=== PATIENT | female | born 1995 | race Caucasian/White ===

== ENCOUNTER 2016-08-29 17:13 | Emergency (ER) | payer BC, OTHER ==
[~2016-08-29] VITALS: Ht 165.1 cm; Wt 144.2 kg
[~2016-08-29 17:13] MED LIST: /LAMO10TA OR; AFRI0.056; ALBU17IN INH; ASTE137S; BENZ2TA GT; CLAR10CA3 PO; COLA50CA3 PO; COMBIVIR PO; DEPA250T2 PO; DEPO150I IM; DICL75TA PO; EFFE75CA75 OR; HYDR-3363 PO; HYDR10EL PO; HYDROXYZINE PO; IBUP200T2 PO; IBUP600T26 PO; IBUP80TA PO; INSENTRESS PO; KONS520C PO; LAMI25TA PO; LAMO100T PO; LAMO100T68 PO; Lotrisone Cream TOP; MEDR150I10 IM; MEDR1VL IM; MELOPOW PO; METAPKT PO; MONT10TA2 PO; NAPR500T OR; NATU400T PO; OCEA0.65; OMEP10CASR PO; OMEP20CA3 PO; OXYB5TA PO; OXYB5TAB80 PO; OXYBPOW PO; PRIL20CA PO; PROZ10CA7 PO; PROZ20CA11 PO; RISP1TAB OR; RISP1TAB3 PO; RISP2TAB3 PO; RISP4TAB33 PO; SING4GRA PO; SING5CHW PO; TENOFOVIR; TRAZ50TA OR; TRAZ50TA4 PO; TRI-TAB16 PO; TRIL300S PO; TRIL600T PO; TRINTAB PO; TRINTAB11 PO; TRUVTAB5 PO; VENTAER IN; VIST25CA PO; VIST50CA PO; VITA400C2 PO; ZOFR8TAB PO; [UNRECOGNIZED DRUG - CODE] TOP; [UNRECOGNIZED DRUG - OTHER] PO
[2016-08-29] MEDS ORDERED: PROT20TA11 PO (17:28)
[2016-08-29] MEDS ORDERED: RISP3TAB18 PO (17:28)
[2016-08-29] MEDS ORDERED: prozosin (17:28)
[2016-08-29] MEDS ORDERED: ULTR50TA PO (19:42)
[2016-08-29 19:48] VITALS: BP 141/91
--- NOTE | 2016-08-30 06:08 | REP ---
RIGHT FOOT, FOUR VIEWS: There is no evidence of an acute fracture, dislocation or intrinsic bone disease. IMPRESSION: No fracture or dislocation. Signed by Bill Gaming MD 08/30/2016 10:13 A
== END 2016-08-29 20:08 | disposition home or self-care (01) ==
LOC: M ED 19:30
DX: S93.601A Unspecified sprain of right foot, initial encounter (principal); Z87.891 Personal history of nicotine dependence; X50.1XXA Overexertion from prolonged static or awkward postures, initial encounter; Y92.099 Unspecified place in other non-institutional residence as the place of occurrence of the external cause; Y93.01 Activity, walking, marching and hiking; Y99.9 Unspecified external cause status

== ENCOUNTER 2016-09-09 12:21 | Emergency (ER) | payer BC, OTHER ==
[~2016-09-09] VITALS: Ht 165.1 cm; Wt 134.7 kg
[2016-09-09 12:21] VITALS: BP 147/76
[~2016-09-09 12:21] MED LIST changes: +PROT20TA11 PO; +RISP3TAB18 PO; +ULTR50TA PO; +prozosin
[2016-09-09] MEDS ORDERED: DEBR6.5S4 AD (13:51)
[2016-09-09] MEDS ORDERED: MAGICMW MT (13:51)
== END 2016-09-09 14:21 | disposition home or self-care (01) ==
LOC: M ED 12:56
DX: J02.9 Acute pharyngitis, unspecified (principal); H92.01 Otalgia, right ear

== ENCOUNTER 2016-09-14 14:55 | Inpatient (IN) | payer BC ==
[~2016-09-14] VITALS: Ht 167.6 cm; Wt 137.0 kg
[~2016-09-14 14:55] MED LIST changes: +DEBR6.5S4 AD; +MAGICMW MT
[2016-09-14 15:58] LABS: MEAN CORPUSCULAR HEMOGLOBIN 26.2 pg (27.0-33.0); MEAN CORPUSCULAR HGB CONC 32.6 g/dl (32.0-36.5); MEAN CORPUSCULAR VOLUME 80.5 fl (80.0-96.0); RED CELL DISTRIBUTION WIDTH 14.4 % (11.5-14.5)
[2016-09-14 16:19] LABS: METHADONE URINE NEGATIVE (NEGATIVE)
[2016-09-14 16:21] LABS: CONTROL LINE HCG INT CTR LINE PRESENT
[2016-09-14 16:30] LABS: ALBUMIN 3.7 GM/DL (3.2-5.2); ALBUMIN/GLOBULIN RATIO 1.06 (1.00-1.93); ALKALINE PHOSPHATASE 81 U/L (45-117); ALT/SGPT 56 U/L (12-78); ANION GAP 7 MEQ/L (8-16); AST/SGOT 37 U/L (15-37); BILIRUBIN,DIRECT 0.1 MG/DL (0.0-0.2); BILIRUBIN,TOTAL 0.3 MG/DL (0.2-1.0); BLOOD UREA NITROGEN 7 MG/DL (7-18); CALCIUM LEVEL 8.7 MG/DL (8.5-10.1); CARBON DIOXIDE LEVEL 28 MEQ/L (21-32); CHLORIDE LEVEL 106 MEQ/L (98-107); CREATININE FOR GFR 0.83 MG/DL (0.55-1.02); GLOMERULAR FILTRATION RATE > 60.0 (>60); GLUCOSE, FASTING 106 MG/DL (70-105); POTASSIUM SERUM 3.6 MEQ/L (3.5-5.1); SODIUM LEVEL 141 MEQ/L (136-145); TOTAL PROTEIN 7.2 GM/DL (6.4-8.2)
[2016-09-14] MEDS ORDERED: MOM 30ML SUSPENSION UDC PO PRN (20:45)
[2016-09-14] MEDS ORDERED: MAALOX 30 ML SUSP *UDC PO PRN (20:45)
[2016-09-14] MEDS ORDERED: PATIENT COMMENT (21:23)
[2016-09-14] MEDS ORDERED: MAGICMW MT (21:26)
[2016-09-15 01:15] VITALS: BP 140/93
[2016-09-15 06:23] VITALS: BP 140/70
[2016-09-15] MEDS: NICOTINE 14 MG/24 HR TRANSDERMAL TD SCH (09:00)
--- NOTE | 2016-09-15 11:23 | HPEPDOC ---
Medical History and Physical Date of Admission Sep 14, 2016 at 20:35 History and Physical PCP: None ATTENDING: Dr. Osman Phillips HPI: 21yoF admitted to [facility] for unspecified depressive disorder, being medically examined today. Patient states she recently moved back from [facility]. She states she has been out of her medications. She states she was previously on Singulair and albuterol as needed for her asthma. She took Protonix daily for her reflux. She has been having some itching in her nose and mucus in the back of her throat. She should use this to her allergy symptoms. No sore throat, rhinorrhea, fevers or chills. No coughing or sputum production. No wheezing. She has been homeless recently. Patient complains of a recent itchy rash on her forearms bilaterally. Denies any fevers, chills, weakness, fatigue, COLLIER, CP, SOB, cough, palpitations, abdominal pain, N/V/D or changes in bowel or bladder habits. PMHx: Asthma GERD Allergic rhinitis Anxiety Depression PTSD Borderline personality disorder Tobacco use Substance use Obesity BMI 47.7 H/O Intellectual impairment PSHX: denies SOCHX: Resides in: Patient states she is homeless, previously lived with [facility]. Marital Status: Single Kids: None Employment: Disabled Tobacco use: One pack per week ETOH: Denies Illicit Drugs: Marijuana several times per day IV Drug Use: Denies Tattoos done unprofessionally: Denies FAMHX: Mother: Alive, well Father: Unknown Siblings: 3 brothers Alive, well Children: None Unexpected deaths due to medical reasons: None. ROS: As noted in HPI, otherwise 11pt ROS of systems reviewed and remarkable only for LMP unknown. PE: GEN: 21yoF, appears stated age. Well-nourished, well developed. No acute distress. Alert and oriented x 3. Pleasant, interactive. HEENT: Normocephalic, atraumatic. Pupils are equal, round, and reactive to light. Extraocular movements are intact. No nystagmus appreciated. Sclera are nonicteric. Conjunctiva without injection. Nose midline. Nasal turbinates without bogginess. EACs both patent BL. TMs both visualized and ortiz with good cone of light, no bulging or erythema. No facial asymmetry. Moist mucous membranes. Dentition fair. Pharynx pink and moist, no cobblestoning. Neck supple , trachea midline. No lymphadenopathy or thyromegaly appreciated. CHEST: Regular rate and rhythm, +S1, +S2 LUNGS: Clear to auscultation bilaterally. No wheezes, rales, or rhonchi. Breathing appears symmetric and easy. Patient is speaking in full sentences. No accessory muscle use. ABD: Round, soft, non-tender, non-distended. +Bowel sounds throughout. No rebound or guarding. No costovertebral angle tenderness. EXT: Pulses 2+ bilaterally dorsalis pedis and radial. No lower extremity edema appreciated. SKIN: [place], dry, warm. Capillary refill <2sec. a few non-erythematous papular areas are noted on the forearms bilaterally. NEURO: Alert and oriented x 3. Cranial nerves III-XII are intact. No focal deficits appreciated. EKG: Pending. A&P: 21yoF admitted to [facility] for unspecified depressive disorder 1. Psych. Plan per Psychiatry. Obtain baseline EKG to assure the safety of psychiatric medications as they can prolong the QT interval. 2. Nicotine dependence. Patch available. 3. Rash forearms. Apply Benadryl cream as needed. 4. Follow up. No Primary Care Provider. Will attempt to establish PCP on discharge. 5. Substance use. Per psychiatry. 6. Asthma. Resume Singulair 10 mg daily. Continue albuterol HFA 2 puffs every 4 hours as needed 7. Allergic rhinitis. Add Flonase 2 sprays each nostril daily. 8. GERD. Protonix 40 mg daily. 9. Staff member Linnea OVIEDO present throughout exam. Vital Signs Vital Signs Label Value Date Time Patient Temperature 98.6 degrees F 09/15/16622 Temperature Source Core 09/15/16622 Pulse 76 09/15/16622 Respiratory Rate 18 bpm 09/15/16622 Blood Pressure Assessment 140/70 (93) 09/15/16622 Bedside Pulse Oximetry 98 % 09/15/16106 Item Value Date Time Oxygen Delivery Method Room Air 09/15/16106 Laboratory Data Labs 24H Laboratory Tests 2 09/14/16 15:42: Acetaminophen Level < 2.0L, Aspartate Amino Transf (AST/SGOT) 37, Alanine Aminotransferase (ALT/SGPT) 56, Alkaline Phosphatase 81, Total Bilirubin 0.3, Direct Bilirubin 0.1, Albumin 3.7, Albumin/Globulin Ratio 1.06, Anion Gap 7L, Calcium Level 8.7, Ethyl Alcohol Level 0.003, Glomerular Filtration Rate > 60.0 , Human Chorionic Gonadotropin, Qual NEGATIVE, Salicylates Level < 1.7L, Thyroid Stimulating Hormone (TSH) 1.330, Total Protein 7.2 09/14/16 15:51: Urine Amphetamines Screen NEGATIVE, Urine Benzodiazepines Screen NEGATIVE, Urine Opiates Screen NEGATIVE, Urine Barbiturates Screen NEGATIVE, Urine Cannabinoids Screen NEGATIVE, Urine Cocaine Metabolite Screen NEGATIVE, Urine Methadone Screen NEGATIVE, Urine Phencyclidine Screen NEGATIVE CBC/BMP Laboratory Tests 09/14/16 15:42 Red Blood Count 4.78, Mean Corpuscular Volume 80.5, Mean Corpuscular Hemoglobin 26.2 L, Mean Corpuscular Hemoglobin Concent 32.6, Red Cell Distribution Width 14.4 Home Medications Scheduled PRN Magic Mouthwash (First-Mouthwash Blm) 1 Ea Susp 1 EA MT Q6H PRN PRN THROAT SORENESS Miscellaneous Medications ([Patient Comment]) PATIENT HAS BEEN OFF HER OTHER MEDICATIONS FOR A MONTH Allergies Coded Allergies: Ibuprofen (Verified Allergy, Mild, hematuria, 08/29/16) Lay Chilel Sep 15, 2016 11:23
[2016-09-15] MEDS ORDERED: ALBUTEROL 90 MCG/ACT 8GM HFA INHALER INH PRN (11:30)
[2016-09-15] MEDS ORDERED: diphenhydrAMINE CREAM 30GM TOP PRN (11:30)
[2016-09-15] MEDS: PANTOPRAZOLE 40MG TAB (PROTONIX) PO SCH (12:10)
[2016-09-15] MEDS: FLUTICASONE PROP 0.05% NASAL SPRAY 16 GM (FLONASE) SCH (12:10)
[2016-09-15] MEDS: MONTELUKAST 10 MG TAB PO SCH (12:10)
[2016-09-15 18:00] VITALS: BP 136/68
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
[2016-09-15] MEDS: traZODone 50 MG TAB PO PRN (21:52)
[2016-09-15] MEDS: PRAZOSIN 1 MG CAP PO SCH (21:53)
[2016-09-16 06:37] VITALS: BP 135/61
[2016-09-16] MEDS: NICOTINE 14 MG/24 HR TRANSDERMAL TD SCH (09:00)
[2016-09-16] MEDS: MONTELUKAST 10 MG TAB PO SCH (09:26)
[2016-09-16] MEDS: PANTOPRAZOLE 40MG TAB (PROTONIX) PO SCH (09:26)
[2016-09-16] MEDS: FLUTICASONE PROP 0.05% NASAL SPRAY 16 GM (FLONASE) SCH (09:26)
--- NOTE | 2016-09-16 09:46 | ECGEPIP ---
Stationary ECG Study [facility] Test Date: 2016-09-15 Pat Name: JOHN LADD Department: Room: [place] [address] Gender: F Ground Crew Supervisor: SWAPNA : 1995 Requested By: Lay Chilel Order Number: [id number] Reading MD: Nicki Burton Measurements Intervals [place] Rate: 85 P: 51 OH: 148 QRS: 45 QRSD: 91 T: 63 QT: 378 QTc: 451 Interpretive Statements SINUS RHYTHM WITH SINUS ARRHYTHMIA NONSPECIFIC T-WAVE ABNORMALITY T WAVE ABNORMALITIES ARE MORE PROMINENT SINCE 01/07/14 Electronically Signed On 09-16-2016 9:46:08 EDT by Nicki Burton
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
[2016-09-16 18:00] VITALS: BP 139/81
[2016-09-16] MEDS: PRAZOSIN 1 MG CAP PO SCH (20:49)
[2016-09-16] MEDS: traZODone 50 MG TAB PO PRN (20:49)
[2016-09-16] MEDS: ACETAMINOPHEN TAB 650MG DOSE (2X325MG) PO PRN (20:51)
[2016-09-17 06:22] VITALS: BP 150/75
[2016-09-17] MEDS: NICOTINE 14 MG/24 HR TRANSDERMAL TD SCH (09:00)
[2016-09-17] MEDS: PANTOPRAZOLE 40MG TAB (PROTONIX) PO SCH (09:48)
[2016-09-17] MEDS: MONTELUKAST 10 MG TAB PO SCH (09:48)
[2016-09-17] MEDS: FLUTICASONE PROP 0.05% NASAL SPRAY 16 GM (FLONASE) SCH (09:48)
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
[2016-09-17 18:00] VITALS: BP 132/68
[2016-09-17] MEDS: ACETAMINOPHEN TAB 650MG DOSE (2X325MG) PO PRN (18:13)
[2016-09-17] MEDS: traZODone 50 MG TAB PO PRN (21:08)
[2016-09-17] MEDS: PRAZOSIN 1 MG CAP PO SCH (21:10)
[2016-09-18 06:17] VITALS: BP 143/73
[2016-09-18] MEDS: NICOTINE 14 MG/24 HR TRANSDERMAL TD SCH (08:59)
[2016-09-18] MEDS: FLUTICASONE PROP 0.05% NASAL SPRAY 16 GM (FLONASE) SCH (08:59)
[2016-09-18] MEDS: PANTOPRAZOLE 40MG TAB (PROTONIX) PO SCH (08:59)
[2016-09-18] MEDS: MONTELUKAST 10 MG TAB PO SCH (08:59)
--- NOTE | 2016-09-18 10:07 | IPNPDOC ---
Subjective Date Seen The patient was seen on 09/18/16. Subjective Chief Complaint/HPI The patient is a 21-year-old female admitted with a reason for visit of Unspec Depressive Do. Events since last encounter Requested to evaluate patient for loose stools. Patient states she began to have symptoms 2 days ago. She reports some lower left abdominal discomfort. She has noticed some urinary frequency. Some urgency. She states her urine is tinged pink. She denies back pain or flank pain. No fevers or chills. No nausea or vomiting. She is eating and drinking. She has had some loose stools and incontinence of stool. (the pt is reportedly chronically incontinent of stool and urine during prior admissions). She denies any rectal pain or hemorrhoids. The patient verbally advises no other concerns at this time. She is ambulating about the hallways. Constitutional: Denies: Chills, Fever, Night Sweats Pulmonary: Denies: Cough, Dyspnea Cardiovascular: Denies: Chest Pain, Lt Headedness, Orthopnea, Palpitations, Paroxysmal Noc. Dyspnea Neurological: Denies: Numbness, Weakness Objective Physical Examination General Exam: Positive: Alert Eye Exam: Positive: PERRLA ENT Exam: Positive: Atraumatic, Mucous membr. moist/pink, Pharynx Normal Chest Exam: Positive: Clear to auscultation, Normal air movement Heart Exam: Positive: Normal S1, Normal S2, Rate Normal, Regular Rhythm, Negative: Murmurs, Rubs Abdomen Exam: Positive: Normal bowel sounds, Soft, Negative: Hepatospenomegaly, Tenderness Skin Exam: Positive: Nl turgor and temperature Neuro Exam: Positive: Normal Gait Assessment /Plan Problems (1) Dysuria Status: Acute Problem Text: * CBC/CMP pending * UA/urine culture (2) Loose stools Status: Acute Problem Text: * CBC/CMP pending * GI panel pending (3) Asthma Status: Chronic Response to Treatment: Stable Problem Text: * Singulair * Albuterol as needed (4) Allergic rhinitis Status: Chronic Response to Treatment: Stable Problem Text: * Flonase (5) GERD (gastroesophageal reflux disease) Status: Chronic Response to Treatment: Stable Problem Text: * Protonix Plan/VTE VTE Prophylaxis Ordered?: No (ambulatory) Disposition As per psychiatry VS, I&O, 24H, Fishbone Vital Signs/I&O Vital Signs Date Time Temp Pulse Resp B/P Pulse Ox O2 Delivery O2 Flow Rate FiO2 09/18/16 06:17 99.5 91 16 143/73 09/16/16 06:37 Room Air 09/15/16 01:07 98 Lay Chilel Sep 18, 2016 10:07
[2016-09-18 10:11] LABS: BASO % 0.3 % (0.0-1.0); EOS # 0.1 K/mm3 (0.0-0.50); EOS % 2.9 % (0.0-3.0); LARGE UNSTAINED CELL # 0.1 K/mm3 (0.0-0.4); LARGE UNSTAINED CELL % 2.4 % (0.0-4.0); LYMPH # 1.8 K/mm3 (1.5-6.5); LYMPH % 40.4 % (24.0-44.0); MEAN CORPUSCULAR HEMOGLOBIN 27.1 pg (27.0-33.0); MEAN CORPUSCULAR HGB CONC 33.6 g/dl (32.0-36.5); MEAN CORPUSCULAR VOLUME 80.6 fl (80.0-96.0); MONO # 0.2 K/mm3 (0.0-0.8); MONO % 5.4 % (0.0-5.0); NEUTROPHILS # 2.1 K/mm3 (1.8-7.7); NEUTROPHILS % 48.6 % (36.0-66.0); PLATELET COUNT, AUTOMATED 297 k/mm3 (150-450); RED CELL DISTRIBUTION WIDTH 14.7 % (11.5-14.5); WHITE BLOOD COUNT 4.4 K/mm3 (4.0-10.0)
[2016-09-18 10:26] LABS: ALBUMIN 3.2 GM/DL (3.2-5.2); ALBUMIN/GLOBULIN RATIO 0.94 (1.00-1.93); ALKALINE PHOSPHATASE 73 U/L (45-117); ALT/SGPT 42 U/L (12-78); ANION GAP 9 MEQ/L (8-16); AST/SGOT 22 U/L (15-37); BILIRUBIN,TOTAL 0.2 MG/DL (0.2-1.0); BLOOD UREA NITROGEN 10 MG/DL (7-18); CALCIUM LEVEL 8.4 MG/DL (8.5-10.1); CARBON DIOXIDE LEVEL 27 MEQ/L (21-32); CHLORIDE LEVEL 107 MEQ/L (98-107); CREATININE FOR GFR 0.75 MG/DL (0.55-1.02); GLOMERULAR FILTRATION RATE > 60.0 (>60); GLUCOSE, FASTING 108 MG/DL (70-105); POTASSIUM SERUM 4.6 MEQ/L (3.5-5.1); SODIUM LEVEL 143 MEQ/L (136-145); TOTAL PROTEIN 6.6 GM/DL (6.4-8.2)
[2016-09-18] MEDS ORDERED: traZODone 100 MG TAB PO PRN (17:00)
[2016-09-18 18:00] VITALS: BP 154/92
--- NOTE | 2016-09-18 18:01 | IPNPDOC ---
[facility] Progress Note Progress Note DATE OF SERVICE: 09/18/16 INTERVAL HISTORY: The patient is met with today. She described that she was feeling much better she was found playing a game of battleship with other peers and appeared to be enjoying it fairly well. She described that she was feeling better with the Minipress and trazodone combination for sleep. She described that she was still having some trouble sleeping and was interested increasing her trazodone to a small amount. She described that she was interested in the [facility] referral, in process. Otherwise she states she is having no side effects from the medications and that her original suicidality and depression that she presented with had resolved in the milieu. Nursing staff had no concerns with the patient and she's been amenable upon approach per report. VITAL SIGNS: See below. NEW TEST RESULTS: See below CURRENT MEDICATIONS: See below. MENTAL STATUS EXAMINATION: General: Cooperative but with poor hygiene, improving Speech: Spontaneous fluid Thought processes: Linear logical Thought content: Perseveration on battleship Abstract reasoning, and computation: Intact Description of associations: Intact Description of abnormal or psychotic thoughts:Denies any suicidal or homicidal ideation. Denies any auditory or visual hallucinations. Does not appear to be responding to internal stimuli. Does not appear to be endorsing any bizarre or paranoid ideation. Judgment: Limited Insight: Limited Orientation: Alert and oriented 3 Recent and remote memory: Intact Attention span and concentration: Intact Fund of knowledge: Poor Mood: "Okay" Affect: Euthymic with a full range DIAGNOSES: 1. PTSD, acute phase. 2. borderline personality disorder by history. 3. Intellectual disability by history. ASSESSMENT: 21-year-old woman with a history of intellectual impairment and borderline personality disorder presents in acute phase PTSD. she has benefited greatly from the milieu as well as conservative treatment with Minipress and trazodone. Her sleep appears to be the knees of improving her mood and social ability. MANAGEMENT PLAN: Medications: Increase trazodone to 100 mg when necessary at night for sleep and continue Minipress 2 mg at night with potential to use longer acting agent such this does not provide adequate coverage Psychotherapy: Continue standard psychotherapy and encourage group attendance Social: TLS referral in progress Misc: None Disposition: The patient will need a longer inpatient stay to just further PTSD symptoms and adjust medications. She is currently unstable for discharge. TIME SPENT: 15 minutes. Vital Signs Vital Signs Date Time Temp Pulse Resp B/P Pulse Ox O2 Delivery O2 Flow Rate FiO2 09/18/16 06:17 99.5 91 16 143/73 09/16/16 06:37 Room Air 09/15/16 01:07 98 Laboratory Data 24H Labs Laboratory Tests 2 09/18/16 08:58: Blood Urea Nitrogen 10, Creatinine 0.75, Sodium Level 143, Potassium Level 4.6, Chloride Level 107, Carbon Dioxide Level 27, Calcium Level 8.4L, Aspartate Amino Transf (AST/SGOT) 22, Alanine Aminotransferase (ALT/SGPT) 42, Alkaline Phosphatase 73, Total Bilirubin 0.2, Total Protein 6.6, Albumin 3.2, Albumin/ Globulin Ratio 0.94L, Anion Gap 9, White Blood Count 4.4, Red Blood Count 4.50, Hemoglobin 12.2, Hematocrit 36.3, Mean Corpuscular Volume 80.6, Mean Corpuscular Hemoglobin 27.1, Mean Corpuscular Hemoglobin Concent 33.6, Red Cell Distribution Width 14.7H, Platelet Count 297, Neutrophils (%) (Auto) 48.6, Lymphocytes (%) (Auto) 40.4, Monocytes (%) (Auto) 5.4H, Eosinophils (%) (Auto) 2.9, Basophils (%) (Auto) 0.3, Neutrophils # (Auto) 2.1, Lymphocytes # (Auto) 1.8, Monocytes # (Auto) 0.2, Eosinophils # (Auto) 0.1, Basophils # (Auto) 0.0, Glomerular Filtration Rate > 60.0, Large Unclassified Cells # 0.1, Large Unclassified Cells % 2.4 09/18/16 13:30: Urine Amorphous Sediment , Urine Appearance HAZY, Urine Color YELLOW, Urine pH 7.0, Urine Specific [place] 1.009, Urine Protein NEGATIVE, Urine Glucose (UA) NEGATIVE, Urine Ketones NEGATIVE, Urine Urobilinogen 0.2, Urine Bilirubin NEGATIVE, Urine Leukocyte Esterase TRACEH, Urine Bacteria (Auto) 1+H, Urine Blood NEGATIVE, Urine Calcium Carbonate Cryst(Auto) , Urine Calcium Oxalate Cryst (Auto) , Urine Calcium Phosphate [place] (Auto) , Urine Cellular Casts , Urine Cystine Crystals , Urine Granular Casts (Auto) , Urine Hyaline Casts (Auto ) 0, Urine Leucine Crystals , Urine Mucus (Auto) , Urine Nitrite NEGATIVE, Urine Oval Fat Bodies (Auto) , Urine RBC (Auto) 2, Urine Renal Epithelial Cells , Urine Sperm (Auto) , Urine Squamous Epithelial Cells 3, Urine Transitional Epithelial Cells , Urine Trichomonas (Auto) , Urine Triple Phosphate Cryst (Auto ) , Urine Tyrosine Crystals , Urine Uric Acid Crystals (Auto) , Urine WBC (Auto ) 3, Urine Waxy Casts (Auto) , Urine Yeast-Like Cells (Auto) CBC/BMP Laboratory Tests 09/18/16 08:58 Calcium Level 8.4 L, Aspartate Amino Transf (AST/SGOT) 22, Alanine Aminotransferase (ALT/SGPT) 42, Alkaline Phosphatase 73, Total Bilirubin 0.2, Total Protein 6.6, Albumin 3.2, Red Blood Count 4.50, Mean Corpuscular Volume 80.6, Mean Corpuscular Hemoglobin 27.1, Mean Corpuscular Hemoglobin Concent 33.6 , Red Cell Distribution Width 14.7 H, Neutrophils (%) (Auto) 48.6, Lymphocytes ( %) (Auto) 40.4, Monocytes (%) (Auto) 5.4 H, Eosinophils (%) (Auto) 2.9, Basophils (%) (Auto) 0.3, Neutrophils # (Auto) 2.1, Lymphocytes # (Auto) 1.8, Monocytes # (Auto) 0.2, Eosinophils # (Auto) 0.1, Basophils # (Auto) 0.0 Current Medications Current Medications Acetaminophen (Tylenol Tab) 650 mg Q6HP PRN PO HEADACHE or DISCOMFORT Last administered on 09/17/16t 18:13; Start 09/14/16 at 20:45; Stop 10/14/16 at 20:44 Al Hydrox/Mg Hydrox/Simethicone (Mylanta) 30 ml Q4HP PRN PO HEARTBURN/ INDIGESTION; Start 09/14/16 at 20:45; Stop 10/14/16 at 20:44 Albuterol Sulfate (Proventil, Ventolin Hfa) 2 puff Q4HP PRN INH SHORTNESS OF BREATH; Start 09/15/16 at 11:30; Stop 10/15/16 at 11:29 Diphenhydramine HCl (Benadryl Cream) 1 dose BIDP PRN TOP ITCHING; Start at 11:30; Stop 10/15/16 at 11:29 Fluticasone Propionate (Flonase 0.05% Nasal [place]) 2 spray DAILY NA Last administered on 09/18/16 08:59; Start 09/15/16 at 09:00; Stop 10/15/16 at 08:59 Home Med (Med Rec Complete!) ASDIRECTED XX ; Start 09/14/16 at 21:30; Stop at 21:30; Status DC Magnesium Hydroxide (Milk Of Magnesia) 30 ml DAILYPRN PRN PO CONSTIPATION; Start 09/14/16 at 20:45; Stop 10/14/16 at 20:44 Montelukast Sodium (Singulair) 10 mg DAILY PO Last administered on 09/18/16 08 :59; Start 09/15/16 at 09:00; Stop 10/15/16 at 08:59 Nicotine (Nicoderm Cq 14mg) 1 patch DAILY TD ; Start 09/15/16 at 09:00; Stop at 08:59 Pantoprazole Sodium (Protonix) 40 mg DAILY PO Last administered on 09/18/16 08 :59; Start 09/15/16 at 09:00; Stop 10/15/16 at 08:59 Prazosin HCl (Minipress) 2 mg QHS PO Last administered on 09/17/16 21:10; Start 09/15/16 at 21:00; Stop 10/15/16 at 20:59 Trazodone HCl (Desyrel) 50 mg QHSP PRN PO INSOMNIA Last administered on 21:08; Start 09/14/16 at 20:45; Stop 09/18/16 at 17:02; Status DC Trazodone HCl (Desyrel) 100 mg QHSP PRN PO INSOMNIA; Start 09/18/16 at 17:00; Stop 10/18/16 at 16:59 Allergies Coded Allergies: Ibuprofen (Verified Allergy, Mild, hematuria, 08/29/16) GME ATTESTATION My preceptor for this patient encounter was physically present in the building during the encounter and was fully available. As needed, all aspects of the patient interview, examination, medical decision making process, and medical care plan development were reviewed and approved by the preceptor. Preceptor is aware and concurs with the plan as stated in the body of this note and will attest to such by his/her cosignature. SINAI KHAN DO Sep 18, 2016 18:00
[2016-09-18] MEDS: PRAZOSIN 1 MG CAP PO SCH (21:13)
[2016-09-18] MEDS: ACETAMINOPHEN TAB 650MG DOSE (2X325MG) PO PRN (21:14)
[2016-09-19 06:44] VITALS: BP 130/71
[2016-09-19] MEDS: FLUTICASONE PROP 0.05% NASAL SPRAY 16 GM (FLONASE) SCH (09:00)
[2016-09-19] MEDS: PANTOPRAZOLE 40MG TAB (PROTONIX) PO SCH (09:00)
[2016-09-19] MEDS: MONTELUKAST 10 MG TAB PO SCH (09:00)
[2016-09-19] MEDS: NICOTINE 14 MG/24 HR TRANSDERMAL TD SCH (09:00)
--- NOTE | 2016-09-19 16:49 | IPNPDOC ---
[facility] Progress Note Progress Note DATE OF SERVICE: 09/19/16 INTERVAL HISTORY: Medication Side effects: The patient denies any side effects or men depressed. She describes that the increased trazodone had made her excessively sleepy. Behavior: She is been engaged in social in the milieu. Friendly and amenable upon approach. Group Attendance: Has been attending groups fairly frequently. Psychiatric Symptom change: The patient states that most of her reported psychotic symptoms have resolved. She states that her insomnia has improved was not completely completely treated. She denies any current experience of depression or anxiety and feels that the milieu is highly stabilizing for her. VITAL SIGNS: See below. NEW TEST RESULTS: See below CURRENT MEDICATIONS: See below. MENTAL STATUS EXAMINATION: General: Well dressed with poor hygiene Speech: Spontaneous and fluid Thought processes: Linear and logical Thought content: Excitement about possible discharge Abstract reasoning, and computation: Intact Description of associations: Intact Description of abnormal or psychotic thoughts:Denies any suicidal or homicidal ideation. Denies any auditory or visual hallucinations. Does not appear to be responding to internal stimuli. Does not appear to be endorsing any bizarre or paranoid ideation. Judgment: Limited Insight: Limited Orientation: Alert and orientated 3 Recent and remote memory: Intact Attention span and concentration: Intact Fund of knowledge: Poor Mood: "Great" Affect: Euthymic with a full range DIAGNOSES: 1. PTSD, acute. 2. History of borderline personality disorder. 3. History of intellectual disability. ASSESSMENT: 21-year-old woman with a history of PTSD symptoms as well as reported history of borderline personality disorder and intellectual disability. She presented in acute state of reactivity PTSD after her social situation become tumultuous. MANAGEMENT PLAN: Medications: Continue Minipress 2 mg and lower trazodone to 75 mg when necessary night Psychotherapy: Encourage group attendance Social: billet worker getting contact with mother to determine outpatient options as [facility] will not be able to offer the patient housing in any reasonable amount of time Misc: None Disposition: The patient will require longer inpatient stay to address her medication adjustments and to secure a safe and effective discharge. TIME SPENT: 15 minutes. Vital Signs Vital Signs Date Time Temp Pulse Resp B/P Pulse Ox O2 Delivery O2 Flow Rate FiO2 09/19/16 06:44 97.7 82 20 130/71 09/16/16 06:37 Room Air 09/15/16 01:07 98 Current Medications Current Medications Acetaminophen (Tylenol Tab) 650 mg Q6HP PRN PO HEADACHE or DISCOMFORT Last administered on 09/18/16 21:14; Start 09/14/16 at 20:45; Stop 10/14/16 at 20:44 Al Hydrox/Mg Hydrox/Simethicone (Mylanta) 30 ml Q4HP PRN PO HEARTBURN/ INDIGESTION; Start 09/14/16 at 20:45; Stop 10/14/16 at 20:44 Albuterol Sulfate (Proventil, Ventolin Hfa) 2 puff Q4HP PRN INH SHORTNESS OF BREATH; Start 09/15/16 at 11:30; Stop 10/15/16 at 11:29 Diphenhydramine HCl (Benadryl Cream) 1 dose BIDP PRN TOP ITCHING; Start at 11:30; Stop 10/15/16 at 11:29 Fluticasone Propionate (Flonase 0.05% Nasal [place]) 2 spray DAILY NA Last administered on 09/18/16 08:59; Start 09/15/16 at 09:00; Stop 10/15/16 at 08:59 Home Med (Med Rec Complete!) ASDIRECTED XX ; Start 09/14/16 at 21:30; Stop at 21:30; Status DC Magnesium Hydroxide (Milk Of Magnesia) 30 ml DAILYPRN PRN PO CONSTIPATION; Start 09/14/16 at 20:45; Stop 10/14/16 at 20:44 Montelukast Sodium (Singulair) 10 mg DAILY PO Last administered on 09/18/16 08 :59; Start 09/15/16 at 09:00; Stop 10/15/16 at 08:59 Nicotine (Nicoderm Cq 14mg) 1 patch DAILY TD ; Start 09/15/16 at 09:00; Stop at 08:59 Pantoprazole Sodium (Protonix) 40 mg DAILY PO Last administered on 09/18/16 08 :59; Start 09/15/16 at 09:00; Stop 10/15/16 at 08:59 Prazosin HCl (Minipress) 2 mg QHS PO Last administered on 09/18/16 21:13; Start 09/15/16 at 21:00; Stop 10/15/16 at 20:59 Trazodone HCl (Desyrel) 50 mg QHSP PRN PO INSOMNIA Last administered on 21:08; Start 09/14/16 at 20:45; Stop 09/18/16 at 17:02; Status DC Trazodone HCl (Desyrel) 100 mg QHSP PRN PO INSOMNIA Last administered on 21:12; Start 09/18/16 at 17:00; Stop 10/18/16 at 16:59 Allergies Coded Allergies: Ibuprofen (Verified Allergy, Mild, hematuria, 08/29/16) GME ATTESTATION My preceptor for this patient encounter was physically present in the building during the encounter and was fully available. As needed, all aspects of the patient interview, examination, medical decision making process, and medical care plan development were reviewed and approved by the preceptor. Preceptor is aware and concurs with the plan as stated in the body of this note and will attest to such by his/her cosignature. SINAI KHAN DO Sep 19, 2016 16:49
[2016-09-19] MEDS ORDERED: traZODone 25MG PER 1/2 TABLET PO PRN (17:30)
[2016-09-19 18:21] VITALS: BP 154/85
[2016-09-19] MEDS ORDERED: LORazepam 1 MG TAB PO STA (19:03)
[2016-09-19] MEDS: ACETAMINOPHEN TAB 650MG DOSE (2X325MG) PO PRN (21:38)
[2016-09-19] MEDS: traZODone 50 MG TAB PO PRN (21:39)
[2016-09-19] MEDS: PRAZOSIN 1 MG CAP PO SCH (21:41)
[2016-09-20 06:20] VITALS: BP 144/90
[2016-09-20] MEDS: NICOTINE 14 MG/24 HR TRANSDERMAL TD SCH (09:00)
[2016-09-20] MEDS: MONTELUKAST 10 MG TAB PO SCH (09:05)
[2016-09-20] MEDS: FLUTICASONE PROP 0.05% NASAL SPRAY 16 GM (FLONASE) SCH (09:05)
[2016-09-20] MEDS: PANTOPRAZOLE 40MG TAB (PROTONIX) PO SCH (09:05)
[2016-09-20 18:00] VITALS: BP 137/67
[2016-09-20] MEDS: hydrOXYzine 50 MG TAB PO PRN (19:45)
[2016-09-20] MEDS: traZODone 50 MG TAB PO PRN (20:16)
[2016-09-20] MEDS: PRAZOSIN 1 MG CAP PO SCH (20:16)
[2016-09-21 06:13] VITALS: BP 137/78
[2016-09-21] MEDS: NICOTINE 14 MG/24 HR TRANSDERMAL TD SCH (09:00)
[2016-09-21] MEDS: PANTOPRAZOLE 40MG TAB (PROTONIX) PO SCH (09:18)
[2016-09-21] MEDS: MONTELUKAST 10 MG TAB PO SCH (09:18)
[2016-09-21] MEDS: FLUTICASONE PROP 0.05% NASAL SPRAY 16 GM (FLONASE) SCH (09:18)
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
--- NOTE | 2016-09-21 16:21 | IPNPDOC ---
[facility] Progress Note Progress Note DATE OF SERVICE: 09/21/16 INTERVAL HISTORY: Medication Side Effects: The patient reports no side effects from her Minipress or trazodone Psychiatric Symptoms: The patient reports that her anxiety yesterday was quite high after expressing a peer who was fairly paranoid and somewhat verbally aggressive. She denies currently experiencing any anxiety or depressive symptoms. Events/Behavior: Yesterday she noted the scratched her arm as she was fairly stressed out by her peer who was fairly paranoid and verbally aggressive. Since then she is been much more calm and did not require any serious intervention. Psychotherapy/Group attendance: The patient has been regularly attending psychotherapy groups on the [place] and making progress. MENTAL STATUS EXAMINATION: General: Well dressed with good hygiene Speech: Spontaneous and fluid Thought processes: Linear and logical Thought content: Introspective about her anxiety Abstract reasoning, and computation: Intact Description of associations: Intact Description of abnormal or psychotic thoughts:Denies any suicidal or homicidal ideation. Denies any auditory or visual hallucinations. Does not appear to be responding to internal stimuli. Does not appear to be endorsing any bizarre or paranoid ideation. Judgment: Limited but improving Insight: Limited but improving Orientation: Alert and orientated 3 Recent and remote memory: Intact Attention span and concentration: Intact Fund of knowledge: Adequate Mood: "Okay" Affect: Euthymic with a full range DIAGNOSES Per DSMV: 1. PTSD, acute phase. 2. History of borderline personality disorder. 3. History of intellectual disability. ASSESSMENT: Clinical Status/Prognosis: Improving and currently stable Discharge planning: Completed with pending discharge tomorrow MANAGEMENT PLAN: Medications: Continue Minipress 2 mg at night and when necessary trazodone 75 mg at night Psychotherapy: The patient will benefit from further inpatient psychotherapy in the form of milieu, group and individual with standard protocols. Social: DSS housing completed Misc: none Disposition: The patient is still suffering from disposition needs, and will need further inpatient time to treat. This case was discussed with the Attending and SW. TIME SPENT: 15 minutes. Vital Signs Vital Signs Date Time Temp Pulse Resp B/P Pulse Ox O2 Delivery O2 Flow Rate FiO2 09/21/16 06:13 98.4 85 16 137/78 09/16/16 06:37 Room Air 09/15/16 01:07 98 Current Medications Current Medications Acetaminophen (Tylenol Tab) 650 mg Q6HP PRN PO HEADACHE or DISCOMFORT Last administered on 09/19/16 21:38; Start 09/14/16 at 20:45; Stop 10/14/16 at 20:44 Al Hydrox/Mg Hydrox/Simethicone (Mylanta) 30 ml Q4HP PRN PO HEARTBURN/ INDIGESTION; Start 09/14/16 at 20:45; Stop 10/14/16 at 20:44 Albuterol Sulfate (Proventil, Ventolin Hfa) 2 puff Q4HP PRN INH SHORTNESS OF BREATH; Start 09/15/16 at 11:30; Stop 10/15/16 at 11:29 Diphenhydramine HCl (Benadryl Cream) 1 dose BIDP PRN TOP ITCHING; Start at 11:30; Stop 10/15/16 at 11:29 Fluticasone Propionate (Flonase 0.05% Nasal [place]) 2 spray DAILY NA Last administered on 09/21/16 09:18; Start 09/15/16 at 09:00; Stop 10/15/16 at 08:59 Home Med (Med Rec Complete!) ASDIRECTED XX ; Start 09/14/16 at 21:30; Stop at 21:30; Status DC Hydroxyzine HCl (Atarax) 50 mg Q8HP PRN PO ANXIETY/AGITATION Last administered on 09/20/16 19:45; Start 09/20/16 at 18:15 Magnesium Hydroxide (Milk Of Magnesia) 30 ml DAILYPRN PRN PO CONSTIPATION; Start 09/14/16 at 20:45; Stop 10/14/16 at 20:44 Montelukast Sodium (Singulair) 10 mg DAILY PO Last administered on 09/21/16 09 :18; Start 09/15/16 at 09:00; Stop 10/15/16 at 08:59 Nicotine (Nicoderm Cq 14mg) 1 patch DAILY TD ; Start 09/15/16 at 09:00; Stop at 08:59 Pantoprazole Sodium (Protonix) 40 mg DAILY PO Last administered on 09/21/16 09 :18; Start 09/15/16 at 09:00; Stop 10/15/16 at 08:59 Prazosin HCl (Minipress) 2 mg QHS PO Last administered on 09/20/16 20:16; Start 09/15/16 at 21:00; Stop 10/15/16 at 20:59 Trazodone HCl (Desyrel) 50 mg QHSP PRN PO INSOMNIA Last administered on 21:08; Start 09/14/16 at 20:45; Stop 09/18/16 at 17:02; Status DC Trazodone HCl (Desyrel) 75 mg QHSP PRN PO INSOMNIA; Start 09/19/16 at 17:30; Stop 09/19/16 at 17:30; Status DC Trazodone HCl (Desyrel) 75 mg QHSP PRN PO INSOMNIA Last administered on 20:16; Start 09/19/16 at 17:30; Stop 10/19/16 at 17:29 Trazodone HCl (Desyrel) 100 mg QHSP PRN PO INSOMNIA Last administered on 21:12; Start 09/18/16 at 17:00; Stop 09/19/16 at 17:20; Status DC Allergies Coded Allergies: Ibuprofen (Verified Allergy, Mild, hematuria, 08/29/16) GME ATTESTATION My preceptor for this patient encounter was physically present in the building during the encounter and was fully available. As needed, all aspects of the patient interview, examination, medical decision making process, and medical care plan development were reviewed and approved by the preceptor. Preceptor is aware and concurs with the plan as stated in the body of this note and will attest to such by his/her cosignature. SINAI KHAN DO Sep 21, 2016 16:21
[2016-09-21 18:00] VITALS: BP 124/58
[2016-09-21 22:11] VITALS: BP 134/7
[2016-09-21] MEDS: hydrOXYzine 50 MG TAB PO PRN (22:11)
[2016-09-21] MEDS: traZODone 50 MG TAB PO PRN (22:11)
[2016-09-21] MEDS: PRAZOSIN 1 MG CAP PO SCH (22:11)
[2016-09-22] MEDS ORDERED: MONT10TA2 PO (09:17)
[2016-09-22] MEDS ORDERED: PANT40TA2 PO (09:17)
[2016-09-22] MEDS ORDERED: NICO14PA TD (09:17)
[2016-09-22] MEDS ORDERED: FLUTISP (09:17)
[2016-09-22] MEDS ORDERED: ALBU17IN INH (09:17)
[2016-09-22] MEDS: PANTOPRAZOLE 40MG TAB (PROTONIX) PO SCH (09:33)
[2016-09-22] MEDS: FLUTICASONE PROP 0.05% NASAL SPRAY 16 GM (FLONASE) SCH (09:33)
[2016-09-22] MEDS: MONTELUKAST 10 MG TAB PO SCH (09:33)
[2016-09-22] MEDS: NICOTINE 14 MG/24 HR TRANSDERMAL TD SCH (09:33)
[2016-09-22] MEDS ORDERED: TRAZO50TA PO (09:48)
[2016-09-22] MEDS ORDERED: MINI1CAP PO (09:48)
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
== END 2016-09-22 11:30 | disposition home or self-care (01) | DRG 755 ==
LOC: M ED 15:42 → M ED INP 20:35 → M PSY 09-15 01:15
PROVIDERS: ADMIT Psychiatry & Neurology Child & Adolescent Psychiatry; ATTEND Psychiatry & Neurology Psychiatry
DX: F43.10 Post-traumatic stress disorder, unspecified (principal); Z68.42 Body mass index [BMI] 45.0-49.9, adult; R45.851 Suicidal ideations; F79 Unspecified intellectual disabilities; R45.850 Homicidal ideations; F60.3 Borderline personality disorder; J45.909 Unspecified asthma, uncomplicated; K21.9 Gastro-esophageal reflux disease without esophagitis; F17.200 Nicotine dependence, unspecified, uncomplicated; E66.9 Obesity, unspecified; R19.7 Diarrhea, unspecified

== ENCOUNTER 2016-10-04 15:50 | Emergency (ER) | payer BC ==
[~2016-10-04] VITALS: Ht 165.1 cm; Wt 137.0 kg
[~2016-10-04 15:50] MED LIST changes: +FLUTISP; +MINI1CAP PO; +NICO14PA TD; +PANT40TA2 PO; +PATIENT COMMENT; +TRAZO50TA PO
[2016-10-04 18:50] VITALS: BP 134/73
[2016-10-04] MEDS ORDERED: CIPR0.3S AU (18:56)
[2016-10-04] MEDS ORDERED: AMOX875T PO (18:56)
[2016-10-04] MEDS ORDERED: AMOXICILLIN 500 MG CAP PO ONE (19:00)
[2016-10-04] MEDS ORDERED: CIPROFLOXACIN HC OTIC SUSPENSION AU ONE (19:15)
[2016-10-04] MEDS ORDERED: CIPRODEX OTIC SUSP 7.5ML AU SCH (21:00)
--- NOTE | 2016-10-05 12:32 | ECGEPIP ---
Stationary ECG Study [facility] - ED Test Date: 2016-10-04 Pat Name: JOHN LADD Department: Room: - Gender: F [place]: ct : 1995 Requested By: THONY Rosenberg PA-C Order Number: [id number] Reading MD: Mariola Fuentes Measurements Intervals [place] Rate: 78 P: 35 NH: 150 QRS: 41 QRSD: 83 T: 65 QT: 384 QTc: 437 Interpretive Statements SINUS RHYTHM WITH MARKED SINUS ARRHYTHMIA NONSPECIFIC T-WAVE ABNORMALITY SIMILAR 09/15/16 Electronically Signed On 10-05-2016 12:32:33 EDT by Mariola Fuentes
== END 2016-10-04 19:26 | disposition home or self-care (01) ==
LOC: M ED 16:57
DX: H66.90 Otitis media, unspecified, unspecified ear (principal); H66.40 Suppurative otitis media, unspecified, unspecified ear; F41.9 Anxiety disorder, unspecified; R07.9 Chest pain, unspecified; J45.909 Unspecified asthma, uncomplicated; R00.2 Palpitations; M54.9 Dorsalgia, unspecified; G43.909 Migraine, unspecified, not intractable, without status migrainosus; F43.10 Post-traumatic stress disorder, unspecified; F60.3 Borderline personality disorder; F51.5 Nightmare disorder; Z79.899 Other long term (current) drug therapy; Z88.6 Allergy status to analgesic agent

== ENCOUNTER 2016-10-18 16:29 | Emergency (ER) | payer BC ==
[~2016-10-18] VITALS: Ht 165.1 cm; Wt 137.0 kg
[~2016-10-18 16:29] MED LIST changes: +AMOX875T PO; +CIPR0.3S AU
[2016-10-18 18:01] LABS: MEAN CORPUSCULAR HEMOGLOBIN 26.9 pg (27.0-33.0); MEAN CORPUSCULAR HGB CONC 33.4 g/dl (32.0-36.5); MEAN CORPUSCULAR VOLUME 80.6 fl (80.0-96.0); RED CELL DISTRIBUTION WIDTH 15.4 % (11.5-14.5); WHITE BLOOD COUNT 5.7 K/mm3 (4.0-10.0)
[2016-10-18 18:16] LABS: METHADONE URINE NEGATIVE (NEGATIVE)
[2016-10-18 18:27] LABS: ALBUMIN 3.6 GM/DL (3.2-5.2); ALBUMIN/GLOBULIN RATIO 1.16 (1.00-1.93); ALKALINE PHOSPHATASE 73 U/L (45-117); ALT/SGPT 27 U/L (12-78); ANION GAP 11 MEQ/L (8-16); AST/SGOT 22 U/L (15-37); BILIRUBIN,DIRECT 0.1 MG/DL (0.0-0.2); BILIRUBIN,TOTAL 0.5 MG/DL (0.2-1.0); BLOOD UREA NITROGEN 7 MG/DL (7-18); CALCIUM LEVEL 8.4 MG/DL (8.5-10.1); CARBON DIOXIDE LEVEL 25 MEQ/L (21-32); CHLORIDE LEVEL 105 MEQ/L (98-107); CREATININE FOR GFR 0.75 MG/DL (0.55-1.02); GLOMERULAR FILTRATION RATE > 60.0 (>60); GLUCOSE, FASTING 89 MG/DL (70-105); POTASSIUM SERUM 3.6 MEQ/L (3.5-5.1); SODIUM LEVEL 141 MEQ/L (136-145); TOTAL PROTEIN 6.7 GM/DL (6.4-8.2)
[2016-10-19 00:44] LABS: CONTROL LINE UCG INT CTR LINE PRESENT
[2016-10-19 02:24] VITALS: BP 133/69
--- NOTE | 2016-10-19 09:27 | ECGEPIP ---
Stationary ECG Study [facility] - ED Test Date: 2016-10-19 Pat Name: JOHN LADD Department: Room: - Gender: F Mba Internship: carlos : 1995 Requested By: AISLINN Lyle Order Number: [id number] Reading MD: Mariola Fuentes Measurements Intervals [place] Rate: 76 P: 25 [place]: 147 QRS: 37 QRSD: 86 T: 46 QT: 407 QTc: 459 Interpretive Statements SINUS RHYTHM NONSPECIFIC T-WAVE ABNORMALITY SIMILAR 10/04/16 Electronically Signed On 10-19-2016 9:27:18 EDT by Mariola Fuentes
== END 2016-10-19 02:27 ==
LOC: M ED 17:06
DX: R45.851 Suicidal ideations (principal); F33.9 Major depressive disorder, recurrent, unspecified; F41.9 Anxiety disorder, unspecified; F43.10 Post-traumatic stress disorder, unspecified; F12.90 Cannabis use, unspecified, uncomplicated; Z88.8 Allergy status to other drugs, medicaments and biological substances
CPT/HCPCS: 80048; 80076; 80306; 84443; 84703; 85027; 93005; 99285; G0480

== ENCOUNTER 2016-10-24 19:00 | Emergency (ER) | payer BC ==
[~2016-10-24] VITALS: Ht 165.1 cm; Wt 131.5 kg
[2016-10-24] MEDS ORDERED: LATU40TA PO (19:12)
[2016-10-24] MEDS ORDERED: BACT800T5 PO (21:11)
[2016-10-24] MEDS ORDERED: BACTRIM 160MG/800MG DS TAB PO ONE (21:15)
[2016-10-24 21:17] VITALS: BP 132/78
== END 2016-10-24 21:21 | disposition home or self-care (01) ==
LOC: M ED 19:57
DX: N39.0 Urinary tract infection, site not specified (principal); F51.5 Nightmare disorder; G43.909 Migraine, unspecified, not intractable, without status migrainosus; G47.00 Insomnia, unspecified; Z79.899 Other long term (current) drug therapy; Z79.51 Long term (current) use of inhaled steroids

== ENCOUNTER 2016-10-26 18:23 | Emergency (ER) | payer BC ==
[~2016-10-26] VITALS: Ht 165.1 cm; Wt 131.1 kg
[~2016-10-26 18:23] MED LIST changes: +BACT800T5 PO; +LATU40TA PO
[2016-10-26 18:24] VITALS: BP 127/95
[2016-10-26] MEDS ORDERED: PERC5TAB6 PO (18:47)
[2016-10-26] MEDS ORDERED: PERCOCET 5MG/325MG TAB PO ONE (19:30)
== END 2016-10-26 19:41 | disposition home or self-care (01) ==
LOC: M ED 19:35
DX: G89.29 Other chronic pain (principal); M54.5 Low back pain; E66.9 Obesity, unspecified; Z88.6 Allergy status to analgesic agent; Z79.899 Other long term (current) drug therapy

== ENCOUNTER 2016-11-07 10:48 | Inpatient (IN) | payer BC ==
[~2016-11-07] VITALS: Ht 167.6 cm; Wt 133.9 kg
[~2016-11-07 10:48] MED LIST changes: +PERC5TAB6 PO
[2016-11-07 11:56] LABS: MEAN CORPUSCULAR HEMOGLOBIN 27.8 pg (27.0-33.0); MEAN CORPUSCULAR HGB CONC 33.4 g/dl (32.0-36.5); MEAN CORPUSCULAR VOLUME 83.4 fl (80.0-96.0); RED CELL DISTRIBUTION WIDTH 14.8 % (11.5-14.5); WHITE BLOOD COUNT 5.4 K/mm3 (4.0-10.0)
[2016-11-07 12:02] LABS: CONTROL LINE HCG INT CTR LINE PRESENT
[2016-11-07 12:25] LABS: ANION GAP 7 MEQ/L (8-16); BLOOD UREA NITROGEN 17 MG/DL (7-18); CARBON DIOXIDE LEVEL 25 MEQ/L (21-32); CHLORIDE LEVEL 109 MEQ/L (98-107); GLOMERULAR FILTRATION RATE > 60.0 (>60); GLUCOSE, FASTING 95 MG/DL (70-105); POTASSIUM SERUM 4.1 MEQ/L (3.5-5.1); SODIUM LEVEL 141 MEQ/L (136-145)
[2016-11-07 12:26] LABS: ALBUMIN 3.5 GM/DL (3.2-5.2); ALBUMIN/GLOBULIN RATIO 1.06 (1.00-1.93); ALKALINE PHOSPHATASE 65 U/L (45-117); ALT/SGPT 28 U/L (12-78); AST/SGOT 16 U/L (15-37); BILIRUBIN,DIRECT < 0.1 MG/DL (0.0-0.2); BILIRUBIN,TOTAL 0.4 MG/DL (0.2-1.0); CALCIUM LEVEL 8.5 MG/DL (8.5-10.1); TOTAL PROTEIN 6.8 GM/DL (6.4-8.2)
[2016-11-07 12:30] LABS: METHADONE URINE NEGATIVE (NEGATIVE)
[2016-11-07] MEDS ORDERED: MAALOX 30 ML SUSP *UDC PO PRN (16:30)
[2016-11-07] MEDS ORDERED: ACETAMINOPHEN TAB 650MG DOSE (2X325MG) PO PRN (16:30)
[2016-11-07] MEDS ORDERED: MOM 30ML SUSPENSION UDC PO PRN (16:30)
[2016-11-07] MEDS ORDERED: traZODone 50 MG TAB PO PRN (16:30)
[2016-11-07] MEDS ORDERED: MONT10TA2 PO (16:49)
[2016-11-07] MEDS ORDERED: PANT40TA2 PO (16:49)
[2016-11-07] MEDS ORDERED: FLON1SPR (16:49)
[2016-11-07] MEDS ORDERED: PRAZ1CAP PO (16:49)
[2016-11-07] MEDS ORDERED: ALBU17IN INH (16:49)
[2016-11-07 18:45] VITALS: BP 124/86
[2016-11-07] MEDS ORDERED: ALBUTEROL 90 MCG/ACT 8GM HFA INHALER INH PRN (19:30)
[2016-11-07] MEDS: PRAZOSIN 1 MG CAP PO SCH (20:30)
[2016-11-07] MEDS: LURASIDONE HCL 40 MG TAB (LATUDA) PO SCH (20:30)
[2016-11-07] MEDS: NICOTINE 7 MG/24 HR TRANSDERMAL TD SCH (20:30)
[2016-11-07] MEDS: PANTOPRAZOLE 40MG TAB (PROTONIX) PO SCH (20:30)
[2016-11-08 06:24] VITALS: BP 128/60
[2016-11-08] MEDS: FLUTICASONE PROP 0.05% NASAL SPRAY 16 GM (FLONASE) SCH (08:49)
[2016-11-08] MEDS: NICOTINE 7 MG/24 HR TRANSDERMAL TD SCH (08:49)
[2016-11-08] MEDS: MONTELUKAST 10 MG TAB PO SCH (08:49)
--- NOTE | 2016-11-08 09:30 | HPEPDOC ---
Medical History and Physical Date of Admission November 07, 2016 at 16:24 History and Physical PCP: None ATTENDING: Dr. Osman Phillips HPI: 21yoF admitted to [facility] for unspecified depressive disorder, being medically examined today. Patient complains of a recent itchy rash between the toes of her right foot. Denies any fevers, chills, weakness, fatigue, COLLIER, CP , SOB, cough, palpitations, abdominal pain, N/V/D or changes in bowel or bladder habits. PMHx: Asthma GERD Allergic rhinitis Anxiety Depression PTSD Borderline personality disorder H/O SI Tobacco use Substance use Obesity BMI 47.7 H/O Intellectual impairment H/O incontinence. (Urinary/stool) PSHX: Adenoidectomy SOCHX: Resides in: [place]. Living with fiance, 2 brothers. Marital Status: Single Kids: None Employment: Disabled Tobacco use: One pack per week or less ETOH: Denies Illicit Drugs: History of Marijuana, states not using recently. IV Drug Use: Denies Tattoos done unprofessionally: Denies FAMHX: Mother: Alive, well Father: Unknown Siblings: 3 brothers Alive, well Children: None Unexpected deaths due to medical reasons: None. ROS: As noted in HPI, otherwise 11pt ROS of systems reviewed and remarkable only for LMP unknown. PE: GEN: 21yoF, appears stated age. Well-nourished, well developed. No acute distress. Alert and oriented x 3. responsive to questions. HEENT: Normocephalic, atraumatic. Pupils are equal, round, and reactive to light. Extraocular movements are intact. No nystagmus appreciated. Sclera are nonicteric. Conjunctiva without injection. Nose midline. Nasal turbinates without bogginess. EACs both patent BL. TMs both visualized and ortiz with good cone of light, no bulging or erythema. No facial asymmetry. Moist mucous membranes. Dentition fair. Pharynx pink and moist, no cobblestoning. Neck supple , trachea midline. No lymphadenopathy or thyromegaly appreciated. CHEST: Regular rate and rhythm, +S1, +S2 LUNGS: Clear to auscultation bilaterally. No wheezes, rales, or rhonchi. Breathing appears symmetric and easy. Patient is speaking in full sentences. No accessory muscle use. ABD: Round, soft, non-tender, non-distended. +Bowel sounds throughout. No rebound or guarding. No costovertebral angle tenderness. EXT: Pulses 2+ bilaterally dorsalis pedis and radial. No lower extremity edema appreciated. SKIN: Bath, dry, warm. Capillary refill <2sec. erythematous rash noted between the toes on the right foot. NEURO: Alert and oriented x 3. Cranial nerves III-XII are intact. No focal deficits appreciated. EK10/19/16 SINUS RHYTHM NONSPECIFIC T-WAVE ABNORMALITY SIMILAR 10/04/16. A&P: 21yoF admitted to [facility] for unspecified depressive disorder 1. Psych. Plan per Psychiatry. EKG on file. 2. Nicotine dependence. Patch available. 3. Dermatophytosis right foot. Apply ketoconazole cream daily. 4. Follow up. No Primary Care Provider. Will attempt to establish PCP on discharge. 5. Asthma. Continue Singulair 10 mg daily. Continue albuterol HFA 2 puffs every 4 hours as needed 6. Allergic rhinitis. Continue Flonase 2 sprays each nostril daily. 7. GERD. Continue Protonix 40 mg daily. 8. Staff member Linnea OVIEDO present throughout exam. Vital Signs Vital Signs Date Time Temp Pulse Resp B/P (MAP) Pulse Ox O2 Delivery O2 Flow Rate FiO2 11/08/16 06:24 99.4 77 18 128/60 (82) Room Air 11/07/16 18:45 97 Laboratory Data Labs 24H Laboratory Tests 2 11/07/16 11:29: Urine Amphetamines Screen NEGATIVE, Urine Benzodiazepines Screen NEGATIVE, Urine Opiates Screen NEGATIVE, Urine Methadone Screen NEGATIVE, Urine Barbiturates Screen NEGATIVE, Urine Phencyclidine Screen NEGATIVE, Urine Cocaine Metabolite Screen NEGATIVE, Urine Cannabinoids Screen NEGATIVE 11/07/16 11:30: Anion Gap 7L, Glomerular Filtration Rate > 60.0, Calcium Level 8.5, Aspartate Amino Transf (AST/SGOT) 16, Alanine Aminotransferase (ALT/SGPT) 28, Alkaline Phosphatase 65, Total Bilirubin 0.4, Direct Bilirubin < 0.1, Total Protein 6.8, Albumin 3.5, Albumin/Globulin Ratio 1.06, Thyroid Stimulating Hormone (TSH) 1.400, Human Chorionic Gonadotropin, Qual NEGATIVE, Salicylates Level < 1.7L, Acetaminophen Level < 2.0L, Ethyl Alcohol Level < 0.003 CBC/BMP Laboratory Tests 11/07/16 11:30 Red Blood Count 4.50, Mean Corpuscular Volume 83.4, Mean Corpuscular Hemoglobin 27.8, Mean Corpuscular Hemoglobin Concent 33.4, Red Cell Distribution Width 14.8 H Home Medications Scheduled (Flonase Allergy Relief) 50 Mcg/Act Spr, 2 SPRAYS NA DAILY Lurasidone Hydrochloride (Latuda) 40 Mg Tab, 40 MG PO DAILY Montelukast Sodium (Montelukast Sodium) 10 Mg Tab, 10 MG PO DAILY Pantoprazole Sodium (Pantoprazole Sodium) 40 Mg Tab, 40 MG PO QHS Prazosin Hcl (Prazosin HCl) 1 Mg Cap, 1 MG PO QHS Scheduled PRN Albuterol Sulfate (Ventolin Hfa) 200 Puff/8 Gm Aers, 2 PUFF INH QID PRN for SHORTNESS OF BREATH Allergies Coded Allergies: Ibuprofen (Verified Adverse Reaction, Mild, hematuria, 11/07/16) Lay Chilel November 08, 2016 09:30
[2016-11-08] MEDS: KETOCONAZOLE 2% CREAM TOP SCH (11:24)
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
[2016-11-08] MEDS: LURASIDONE HCL 40 MG TAB (LATUDA) PO SCH (17:49)
[2016-11-08] MEDS: PANTOPRAZOLE 40MG TAB (PROTONIX) PO SCH (21:00)
[2016-11-08] MEDS: PRAZOSIN 1 MG CAP PO SCH (21:00)
[2016-11-09 06:33] VITALS: BP 114/63
[2016-11-09] MEDS: MONTELUKAST 10 MG TAB PO SCH (08:56)
[2016-11-09] MEDS: NICOTINE 7 MG/24 HR TRANSDERMAL TD SCH (08:56)
[2016-11-09] MEDS: KETOCONAZOLE 2% CREAM TOP SCH (08:57)
[2016-11-09] MEDS: FLUTICASONE PROP 0.05% NASAL SPRAY 16 GM (FLONASE) SCH (08:57)
--- NOTE | 2016-11-09 17:10 | MHIPNPDOC ---
[facility] Progress Note Progress Note DATE OF SERVICE: 11/09/16 HISTORY: Patient is a 21-year-old female who was brought to [facility] ER for evaluation after mother figure in home where patient resides was informed that patient had made suicidal gesture preceding night. After verbal altercation with brother, patient apparently went to kitchen and got kitchen knife, informed others in the home and she was going to kill herself, brother intervened and instructed her to go to bed which patient did. Patient has history of multiple prior psychiatric hospitalizations, was last hospitalized at [facility] in late August,. Patient noted at time of admission she had also been experiencing auditory hallucinations telling her to "kill, kill, kill, " denies experiencing concrete command or plan/intent to harm self or others. Transcript Clerk met with patient today to assess treatment progress on inpatient unit. Patient appears less anxious today with reduced hand psychomotor activity, reports reduced symptoms of anxiety and depression, denies suicidal and homicidal ideation, states she has not been experiencing auditory or visual hallucinations, denies urge to engage in self-injurious behavior. Patient informs job specification writer today that her brothers came to visit and encouraged her to be medication compliant, informs job specification writer that she had stopped taking her medications for approximately one week, then restarted her medications approximately 5 days ago, notes medications have been most effective in the past when taking Latuda 40 mg BID and worked "perfectly well," makes requests today for Latuda dose increase. Patient reports improved sleep and denied nightmare symptoms last night, reports improvement in energy level, denies challenges with concentration and focus and states appetite is stable. Patient denies symptoms of physical pain at time of interaction and presents with no signs of acute distress. VITALS: See below NEW TEST RESULTS: No new results PAST MEDICAL/SURGICAL HISTORY: Asthma, GERD, allergic rhinitis, obesity, history of incontinence, reports history of migraine. Adenoidectomy. Currently has dermatophytosis to right foot, is being treated by PA. Patient denies history of seizure or head injury Labs on admission indicate elevated RDW and chloride, low anion gap 10/19/16 EKG sinus rhythm nonspecific T-wave abnormality similar 10/04/16, patient is asymptomatic and PA is aware Diagnosed with palpitations in 2012, states she last experienced symptoms "months ago," denies symptoms of shortness of breath, palpitations, dizziness, chest pain, and headache. Clinical consultation completed with recommendation made to repeat EKG 3 days after Latuda dose increase. HCG negative, patient indicates she has IUD. Patient has been educated on the risks to unborn child should she become while taking psychotropic medication; patient verbalized understanding. UDS negative CURRENT MEDICATIONS: See below MENTAL STATUS EXAMINATION: General appearance: Patient is a 21-year old female, who is pleasant and cooperative, easily engaged, presents with improved hygiene, dressed in hospital clothing, makes improved eye contact, ambulates with steady gait, is obese, appears stated age, exhibits reduced psychomotor activity to hands Speech: Of normal rate, rhythm, volume, coherent, childlike Thought processes: Linear, logical, goal-directed Thought content: Perseverative on anxiety, logical, no tangentiality or paranoia noted Abstract reasoning and computation: Appear limited but intact Description of associations: Intact Description of abnormal or psychotic thoughts: Denies current suicidal or homicidal ideation, denies auditory and visual hallucinations, does not appear to be responding to internal stimuli, does not endorse bizarre or paranoid ideation, denies preoccupation with violence or obsessions. Judgment: Poor Insight: Poor Orientation: A and O 3 Recent and remote memory: Appears intact Attention span and concentration: Adequate Fund of knowledge: Limited Mood: "I'm feeling better today than yesterday, still anxious at times but getting better." Patient remains anxious, appears less depressed today, mood appears generally level Affect: Constricted, brightens at times, congruent with mood. DIAGNOSES: Unspecified mood disorder, rule out MDD, PTSD, history of borderline personality disorder, history of intellectual impairment by history, polysubstance use disorder ASSESSMENT: Patient appears to be adjusting to unit, is attending groups, has been visible, engaging appropriately with staff and peers. Patient states today she does not want Geodon restart, indicates Latuda was effective but she had not been medication compliant, makes requests for ongoing treatment with Latuda , states most effective dosing in past for her has been 40 mg BID, makes request for dose increase with BID dosing noting, "the dose in the morning helps to keep me leveled out during the day and the nighttime dose helps with my sleep." Patient did not take prazosin last night due to "I fell asleep and I forgot," denies experiencing nightmares and is aware she has trazodone available to her for sleep if needed. Patient denies medication side effects. Patient denies current suicidal or homicidal ideation and verbalizes awareness of how to access supportive services on the unit if needed. Will monitor patient 's response to medications and monitor for side effects and, per consultation with PA, will order follow-up EKG post medication dosing adjustment. Will continue to evaluate patient's safety, resolution of suicidal ideation, and discharge readiness. Patient indicates when prepared for discharge she will return home with daksha, 2 brothers, and mother figure with whom she resides, will follow up for outpatient psychotherapy and medication management, and will resume supportive case management services. MANAGEMENT PLAN: Increase Latuda to 20 mg po q am and 40 mg po at 18:00. Continue Minipress 1 mg po hs. Repeat EKG ordered for 11/12/16 Maintain safety precautions Patient to attend groups and participate in unit programming to develop coping strategies Engage patient in discharge planning process and arrange meeting with support system to ensure safe discharge planning when appropriate Patient to follow up with PCM upon discharge TIME SPENT: 35 minutes Vital Signs Vital Signs Date Time Temp Pulse Resp B/P (MAP) Pulse Ox O2 Delivery O2 Flow Rate FiO2 11/09/16 06:33 98.3 75 16 114/63 (80) 11/08/16 06:24 Room Air 11/07/16 18:45 97 Current Medications Current Medications Acetaminophen (Tylenol Tab) 650 mg Q6HP PRN PO HEADACHE or DISCOMFORT Last administered on 11/07/16 20:30; Start 11/07/16 at 16:30; Stop 12/07/16 at 16:29 Al Hydrox/Mg Hydrox/Simethicone (Mylanta) 30 ml Q4HP PRN PO HEARTBURN/ INDIGESTION; Start 11/07/16 at 16:30; Stop 12/07/16 at 16:29 Albuterol Sulfate (Proventil, Ventolin Hfa) 2 puff QIDP PRN INH SHORTNESS OF BREATH; Start 11/07/16 at 19:30; Stop 12/07/16 at 19:29 Fluticasone Propionate (Flonase 0.05% Nasal [place]) 2 spray DAILY NA Last administered on 11/09/16 08:57; Start 11/08/16 at 09:00; Stop 12/08/16 at 08:59 Home Med (Med Rec Complete!) ASDIRECTED XX ; Start 11/07/16 at 17:00; Stop at 17:00; Status DC Ketoconazole (Nizoral) 1 dose DAILY TOP Last administered on 11/09/16 08:57; Start 11/08/16 at 09:00; Stop 12/08/16 at 08:59 Lurasidone HCl (Latuda) 20 mg DAILY@08 PO ; Start 11/10/16 at 08:00; Stop at 07:59; Status UNV Lurasidone HCl (Latuda) 40 mg DAILY@18 PO Last administered on 11/08/16 17:49 ; Start 11/07/16 at 18:00; Stop 11/08/16 at 18:21; Status DC Magnesium Hydroxide (Milk Of Magnesia) 30 ml DAILYPRN PRN PO CONSTIPATION; Start 11/07/16 at 16:30; Stop 12/07/16 at 16:29 Montelukast Sodium (Singulair) 10 mg DAILY PO Last administered on 11/09/16 08 :56; Start 11/08/16 at 09:00; Stop 12/08/16 at 08:59 Nicotine (Nicoderm Cq 7 Mg) 1 patch DAILY TD Last administered on 11/09/16 08: 56; Start 11/07/16 at 09:00; Stop 12/07/16 at 08:59 Pantoprazole Sodium (Protonix) 40 mg QHS PO Last administered on 11/07/16 20: 30; Start 11/07/16 at 21:00; Stop 12/07/16 at 20:59 Prazosin HCl (Minipress) 1 mg QHS PO Last administered on 11/07/16 20:30; Start 11/07/16 at 21:00; Stop 12/07/16 at 20:59 Trazodone HCl (Desyrel) 50 mg QHSP PRN PO INSOMNIA; Start 11/07/16 at 16:30; Stop 12/07/16 at 16:29 Allergies Coded Allergies: Ibuprofen (Verified Adverse Reaction, Mild, hematuria, 11/07/16) Renetta Martinez November 09, 2016 17:10
[2016-11-09] MEDS: LURASIDONE HCL 40 MG TAB (LATUDA) PO SCH (17:37)
[2016-11-09 18:00] VITALS: BP 130/63
[2016-11-09] MEDS: PRAZOSIN 1 MG CAP PO SCH (21:00)
[2016-11-09] MEDS: PANTOPRAZOLE 40MG TAB (PROTONIX) PO SCH (21:00)
[2016-11-10 06:31] VITALS: BP 132/81
[2016-11-10] MEDS: FLUTICASONE PROP 0.05% NASAL SPRAY 16 GM (FLONASE) SCH (08:39)
[2016-11-10] MEDS: MONTELUKAST 10 MG TAB PO SCH (08:40)
[2016-11-10] MEDS: KETOCONAZOLE 2% CREAM TOP SCH (08:40)
[2016-11-10] MEDS: LURASIDONE 20 MG TAB (LATUDA) PO SCH (08:40)
[2016-11-10] MEDS: NICOTINE 7 MG/24 HR TRANSDERMAL TD SCH (08:42)
--- NOTE | 2016-11-10 14:53 | MHIPNPDOC ---
[facility] Progress Note Progress Note DATE OF SERVICE: 11/10/16 HISTORY: Patient is a 21-year-old female who was brought to [facility] ER for evaluation after mother figure in home where patient resides was informed that patient had made suicidal gesture preceding night. After verbal altercation with brother, patient apparently went to kitchen and got kitchen knife, informed others in the home and she was going to kill herself, brother intervened and instructed her to go to bed which patient did. Patient has history of multiple prior psychiatric hospitalizations, was last hospitalized at [facility] in late August,. Patient noted at time of admission she had also been experiencing auditory hallucinations telling her to "kill, kill, kill, " denies experiencing concrete command or plan/intent to harm self or others. Dog Races Manager met with patient today to assess treatment progress on inpatient unit. Patient appears less anxious today with reduced hand psychomotor activity, reports reduced symptoms of anxiety and depression, denies suicidal and homicidal ideation, states she has not been experiencing auditory or visual hallucinations, denies urge to engage in self-injurious behavior. Patient indicates recent dose increase to 2 days helpful, indicates most effective dosing taken in the past has been 40 mg BID, adding a.m. dosing helps to keep her mood level throughout the day and "helps keep the voices away." Patient today indicated that she had been taking Latuda 40 mg for approximately one month, stopped taking medication approximately one week prior to hospitalization and had not restarted medication as previously indicated, noting medication had been "misplaced." Patient states outpatient provider had restarted Latuda at 40 mg with plan to increase, however, patient was not compliant with medications or follow-up. Due to conflicting information being provided by patient, medication and treatment background information is being requested by air traffic coordinator. Patient reports stable sleep, denies expressing nightmares last night, reports stable energy level, denies challenges with concentration and focus and notes appetite is stable. Patient denies symptoms of physical pain at time of interaction and presents with no signs of acute distress. VITALS: See below NEW TEST RESULTS: No new results PAST MEDICAL/SURGICAL HISTORY: Asthma, GERD, allergic rhinitis, obesity, history of incontinence, reports history of migraine. Adenoidectomy. Currently has dermatophytosis to right foot, is being treated by PA. Patient denies history of seizure or head injury Labs on admission indicate elevated RDW and chloride, low anion gap 10/19/16 EKG sinus rhythm nonspecific T-wave abnormality similar 10/04/16, patient is asymptomatic and PA is aware Diagnosed with palpitations in 2012, states she last experienced symptoms "months ago," denies symptoms of shortness of breath, palpitations, dizziness, chest pain, and headache. Clinical consultation completed with recommendation made to repeat EKG 3 days after Latuda dose increase. HCG negative, patient indicates she has IUD. Patient has been educated on the risks to unborn child should she become while taking psychotropic medication; patient verbalized understanding. UDS negative CURRENT MEDICATIONS: See below MENTAL STATUS EXAMINATION: General appearance: Patient is a 21-year old female, who is pleasant and cooperative, easily engaged, presents with improved hygiene, dressed in hospital clothing, makes fair eye contact, ambulates with steady gait, is obese , appears stated age, exhibits reduced psychomotor activity to hands Speech: Of normal rate, rhythm, volume, coherent, childlike Thought processes: Linear, logical, goal-directed Thought content: Perseverative on anxiety, logical, no tangentiality or paranoia noted Abstract reasoning and computation: Appear limited but intact Description of associations: Intact Description of abnormal or psychotic thoughts: Denies current suicidal or homicidal ideation, denies auditory and visual hallucinations, does not appear to be responding to internal stimuli, does not endorse bizarre or paranoid ideation, denies preoccupation with violence or obsessions. Judgment: Poor Insight: Poor Orientation: A and O 3 Recent and remote memory: Appears intact Attention span and concentration: Adequate Fund of knowledge: Limited Mood: "I'm feeling ok, better cause of the medication." Patient remains anxious , appears less depressed today, mood appears more level Affect: Blunted, brightens at times, congruent with mood. DIAGNOSES: Unspecified mood disorder, rule out MDD, PTSD, history of borderline personality disorder, history of intellectual impairment by history, polysubstance use disorder ASSESSMENT: Patient continues to adjust to unit, is attending groups, has been visible, engaging appropriately with staff and peers. Patient reiterates today she does not want Geodon restart, indicates Latuda was effective in past but was not medication compliant, makes requests for ongoing treatment with Latuda, feels recent dose increase is helpful, reiterates most effective dosing in past for her has been 40 mg BID. Patient did not take prazosin last night due to falling asleep prior to taking med, denies experiencing nightmares and is aware she has trazodone available to her for sleep if needed. Patient denies medication side effects. Patient denies current suicidal or homicidal ideation and verbalizes awareness of how to access supportive services on the unit if needed. Will monitor patient's response to medications and monitor for side effects. Per consult recommendation of PA, follow-up EKG has been ordered to evaluate post medication dosing adjustment. Will continue to evaluate patient's safety, resolution of suicidal ideation, and discharge readiness. Patient indicates when prepared for discharge she will return home with daksha, 2 brothers, and mother figure with whom she resides, will follow up for outpatient psychotherapy and medication management, and will resume supportive case management services. MANAGEMENT PLAN: Continue Latuda 20 mg po q am and 40 mg po at 18:00. Continue Minipress 1 mg po hs. Repeat EKG ordered for 11/12/16 Maintain safety precautions Patient to attend groups and participate in unit programming to develop coping strategies Engage patient in discharge planning process and arrange meeting with support system to ensure safe discharge planning when appropriate Patient to follow up with PCM upon discharge TIME SPENT: 35 minutes Vital Signs Vital Signs Date Time Temp Pulse Resp B/P (MAP) Pulse Ox O2 Delivery O2 Flow Rate FiO2 11/10/16 06:31 99.5 77 20 132/81 (98) 11/08/16 06:24 Room Air 11/07/16 18:45 97 Current Medications Current Medications Acetaminophen (Tylenol Tab) 650 mg Q6HP PRN PO HEADACHE or DISCOMFORT Last administered on 11/07/16 20:30; Start 11/07/16 at 16:30; Stop 12/07/16 at 16:29 Al Hydrox/Mg Hydrox/Simethicone (Mylanta) 30 ml Q4HP PRN PO HEARTBURN/ INDIGESTION; Start 11/07/16 at 16:30; Stop 12/07/16 at 16:29 Albuterol Sulfate (Proventil, Ventolin Hfa) 2 puff QIDP PRN INH SHORTNESS OF BREATH; Start 11/07/16 at 19:30; Stop 12/07/16 at 19:29 Fluticasone Propionate (Flonase 0.05% Nasal [place]) 2 spray DAILY NA Last administered on 11/10/16 08:39; Start 11/08/16 at 09:00; Stop 12/08/16 at 08:59 Home Med (Med Rec Complete!) ASDIRECTED XX ; Start 11/07/16 at 17:00; Stop at 17:00; Status DC Ketoconazole (Nizoral) 1 dose DAILY TOP Last administered on 11/10/16 08:40; Start 11/08/16 at 09:00; Stop 12/08/16 at 08:59 Lurasidone HCl (Latuda) 20 mg DAILY@08 PO Last administered on 11/10/16 08:40 ; Start 11/10/16 at 08:00; Stop 12/10/16 at 07:59 Lurasidone HCl (Latuda) 40 mg DAILY@18 PO Last administered on 11/08/16 17:49 ; Start 11/07/16 at 18:00; Stop 11/08/16 at 18:21; Status DC Lurasidone HCl (Latuda) 40 mg DAILY@18 PO Last administered on 11/09/16 17:37 ; Start 11/09/16 at 18:00; Stop 12/09/16 at 17:59 Magnesium Hydroxide (Milk Of Magnesia) 30 ml DAILYPRN PRN PO CONSTIPATION; Start 11/07/16 at 16:30; Stop 12/07/16 at 16:29 Montelukast Sodium (Singulair) 10 mg DAILY PO Last administered on 11/10/16 08 :40; Start 11/08/16 at 09:00; Stop 12/08/16 at 08:59 Nicotine (Nicoderm Cq 7 Mg) 1 patch DAILY TD Last administered on 11/10/16 08: 42; Start 11/07/16 at 09:00; Stop 12/07/16 at 08:59 Pantoprazole Sodium (Protonix) 40 mg QHS PO Last administered on 11/07/16 20: 30; Start 11/07/16 at 21:00; Stop 12/07/16 at 20:59 Prazosin HCl (Minipress) 1 mg QHS PO Last administered on 11/07/16 20:30; Start 11/07/16 at 21:00; Stop 12/07/16 at 20:59 Trazodone HCl (Desyrel) 50 mg QHSP PRN PO INSOMNIA; Start 11/07/16 at 16:30; Stop 12/07/16 at 16:29 Allergies Coded Allergies: Ibuprofen (Verified Adverse Reaction, Mild, hematuria, 11/07/16) Renetta Martinez November 10, 2016 14:53
[2016-11-10] MEDS: LURASIDONE HCL 40 MG TAB (LATUDA) PO SCH (17:54)
[2016-11-10 18:14] VITALS: BP 134/78
[2016-11-10] MEDS: PRAZOSIN 1 MG CAP PO SCH (20:17)
[2016-11-10] MEDS: PANTOPRAZOLE 40MG TAB (PROTONIX) PO SCH (20:17)
[2016-11-11 06:07] VITALS: BP 136/82
[2016-11-11] MEDS: NICOTINE 7 MG/24 HR TRANSDERMAL TD SCH (08:22)
[2016-11-11] MEDS: MONTELUKAST 10 MG TAB PO SCH (08:23)
[2016-11-11] MEDS: KETOCONAZOLE 2% CREAM TOP SCH (08:23)
[2016-11-11] MEDS: LURASIDONE 20 MG TAB (LATUDA) PO SCH (08:23)
[2016-11-11] MEDS: FLUTICASONE PROP 0.05% NASAL SPRAY 16 GM (FLONASE) SCH (08:23)
[2016-11-11] MEDS: LURASIDONE HCL 40 MG TAB (LATUDA) PO SCH (17:46)
[2016-11-11 18:15] VITALS: BP 123/68
[2016-11-11] MEDS: PANTOPRAZOLE 40MG TAB (PROTONIX) PO SCH (20:34)
[2016-11-11] MEDS: PRAZOSIN 1 MG CAP PO SCH (20:34)
--- NOTE | 2016-11-11 22:19 | MHIPNPDOC ---
[facility] Progress Note Progress Note DATE OF SERVICE: 11/11/16 INTERVAL HISTORY: Medication Side effects: reports no side effects from Latuda Behavior/events: has been more engaged and less aloof Group Attendance: attending groups frequently Psychiatric Symptoms: patient reports that her symptoms are improving becoming less godoy and impulsive. She describes that her anxiety as well as her reported auditory hallucinations have improved the start of Latuda on a twice a regimen. She went on to describe that she felt more in control and related that she felt as though the condition with her brothers was causing the majority of her troubles as an outpatient. VITAL SIGNS: See below. NEW TEST RESULTS: See below CURRENT MEDICATIONS: See below. MENTAL STATUS EXAMINATION: General: Well dressed with good hygiene Speech: Spontaneous and fluid Thought processes: Linear and logical Thought content: future orientated Abstract reasoning, and computation: Intact Description of associations: Intact Description of abnormal or psychotic thoughts:Denies any suicidal or homicidal ideation. Denies any auditory or visual hallucinations. Does not appear to be responding to internal stimuli. Does not appear to be endorsing any bizarre or paranoid ideation. Judgment: fair Insight: poor Orientation: Alert and orientated 3 Recent and remote memory: Intact Attention span and concentration: Intact Fund of knowledge: 4 Mood: "fine" Affect: Euthymic with a full range DIAGNOSES: 1. Borderline personality disorder. 2. Intellectual disability. 3. Housing related stressor. ASSESSMENT: improving MANAGEMENT PLAN: Medications: continue medications as below Psychotherapy: encourage group therapy Social: none Misc: none Disposition: The patient will need of further inpatient stay to address disposition and medication titration. TIME SPENT: 15 minutes. Vital Signs Vital Signs Date Time Temp Pulse Resp B/P (MAP) Pulse Ox O2 Delivery O2 Flow Rate FiO2 11/11/16 20:34 127/86 11/11/16 18:15 98.7 89 16 11/11/16 06:07 Room Air 11/07/16 18:45 97 Current Medications Current Medications Acetaminophen (Tylenol Tab) 650 mg Q6HP PRN PO HEADACHE or DISCOMFORT Last administered on 11/07/16 20:30; Start 11/07/16 at 16:30; Stop 12/07/16 at 16:29 Al Hydrox/Mg Hydrox/Simethicone (Mylanta) 30 ml Q4HP PRN PO HEARTBURN/ INDIGESTION Last administered on 11/10/16 15:31; Start 11/07/16 at 16:30; Stop 12/07/16 at 16:29 Albuterol Sulfate (Proventil, Ventolin Hfa) 2 puff QIDP PRN INH SHORTNESS OF BREATH; Start 11/07/16 at 19:30; Stop 12/07/16 at 19:29 Fluticasone Propionate (Flonase 0.05% Nasal [place]) 2 spray DAILY NA Last administered on 11/11/16 08:23; Start 11/08/16 at 09:00; Stop 12/08/16 at 08:59 Home Med (Med Rec Complete!) ASDIRECTED XX ; Start 11/07/16 at 17:00; Stop at 17:00; Status DC Ketoconazole (Nizoral) 1 dose DAILY TOP Last administered on 11/11/16 08:23; Start 11/08/16 at 09:00; Stop 12/08/16 at 08:59 Lurasidone HCl (Latuda) 20 mg DAILY@08 PO Last administered on 11/11/16 08:23 ; Start 11/10/16 at 08:00; Stop 12/10/16 at 07:59 Lurasidone HCl (Latuda) 40 mg DAILY@18 PO Last administered on 11/08/16 17:49 ; Start 11/07/16 at 18:00; Stop 11/08/16 at 18:21; Status DC Lurasidone HCl (Latuda) 40 mg DAILY@18 PO Last administered on 11/11/16 17:46 ; Start 11/09/16 at 18:00; Stop 12/09/16 at 17:59 Magnesium Hydroxide (Milk Of Magnesia) 30 ml DAILYPRN PRN PO CONSTIPATION; Start 11/07/16 at 16:30; Stop 12/07/16 at 16:29 Montelukast Sodium (Singulair) 10 mg DAILY PO Last administered on 11/11/16 08 :23; Start 11/08/16 at 09:00; Stop 12/08/16 at 08:59 Nicotine (Nicoderm Cq 7 Mg) 1 patch DAILY TD Last administered on 11/11/16 08: 22; Start 11/07/16 at 09:00; Stop 12/07/16 at 08:59 Pantoprazole Sodium (Protonix) 40 mg QHS PO Last administered on 11/11/16 20: 34; Start 11/07/16 at 21:00; Stop 12/07/16 at 20:59 Prazosin HCl (Minipress) 1 mg QHS PO Last administered on 11/11/16 20:34; Start 11/07/16 at 21:00; Stop 12/07/16 at 20:59 Trazodone HCl (Desyrel) 50 mg QHSP PRN PO INSOMNIA; Start 11/07/16 at 16:30; Stop 12/07/16 at 16:29 Allergies Coded Allergies: Ibuprofen (Verified Adverse Reaction, Mild, hematuria, 11/07/16) GME ATTESTATION My preceptor for this patient encounter was physically present in the building during the encounter and was fully available. As needed, all aspects of the patient interview, examination, medical decision making process, and medical care plan development were reviewed and approved by the preceptor. Preceptor is aware and concurs with the plan as stated in the body of this note and will attest to such by his/her cosignature. SINAI KHAN DO November 11, 2016 22:19
[2016-11-12 06:22] VITALS: BP 113/57
[2016-11-12] MEDS: NICOTINE 7 MG/24 HR TRANSDERMAL TD SCH (08:23)
[2016-11-12] MEDS: MONTELUKAST 10 MG TAB PO SCH (08:23)
[2016-11-12] MEDS: LURASIDONE 20 MG TAB (LATUDA) PO SCH (08:24)
[2016-11-12] MEDS: KETOCONAZOLE 2% CREAM TOP SCH (08:24)
[2016-11-12] MEDS: FLUTICASONE PROP 0.05% NASAL SPRAY 16 GM (FLONASE) SCH (08:24)
--- NOTE | 2016-11-12 16:46 | ECGEPIP ---
Stationary ECG Study [facility] Test Date: 2016-11-12 Pat Name: JOHN LADD Department: Room: [place] [address] Gender: F Service Employee: [employer] : 1995 Requested By: Renetta Martinez Order Number: [id number] Reading MD: Keri Madsen Measurements Intervals [place] Rate: 84 P: 30 NC: 128 QRS: 36 QRSD: 87 T: 53 QT: 373 QTc: 443 Interpretive Statements SINUS RHYTHM WITH SINUS ARRHYTHMIA ANT ST T WAVE ABN SLIGHTLY MORE MARKED C/W 10/19/16 Electronically Signed On 11-12-2016 16:46:18 EDT by Keri Madsen
[2016-11-12 18:00] VITALS: BP 125/58
[2016-11-12] MEDS: LURASIDONE HCL 40 MG TAB (LATUDA) PO SCH (18:12)
[2016-11-12 21:49] VITALS: BP 144/86
[2016-11-12] MEDS: PRAZOSIN 1 MG CAP PO SCH (21:49)
[2016-11-12] MEDS: PANTOPRAZOLE 40MG TAB (PROTONIX) PO SCH (21:49)
[2016-11-13 06:21] VITALS: BP 140/66
[2016-11-13] MEDS: NICOTINE 7 MG/24 HR TRANSDERMAL TD SCH (08:02)
[2016-11-13] MEDS: MONTELUKAST 10 MG TAB PO SCH (08:03)
[2016-11-13] MEDS: FLUTICASONE PROP 0.05% NASAL SPRAY 16 GM (FLONASE) SCH (08:03)
[2016-11-13] MEDS: LURASIDONE 20 MG TAB (LATUDA) PO SCH (08:03)
[2016-11-13] MEDS: KETOCONAZOLE 2% CREAM TOP SCH (08:03)
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
[2016-11-13] MEDS ORDERED: LATU40TA PO (10:57)
[2016-11-13] MEDS ORDERED: LATU20TA PO (10:57)
[2016-11-13] MEDS ORDERED: ALBU17IN INH (11:25)
[2016-11-13] MEDS ORDERED: KETO2CR TOP (11:33)
[2016-11-13] MEDS ORDERED: FLUTISP (11:33)
== END 2016-11-13 13:15 | disposition home or self-care (01) | DRG 753 ==
LOC: M ED 11:21 → M ED INP 16:24 → M PSY 19:10
PROVIDERS: ADMIT Psychiatry & Neurology Psychiatry; ATTEND Psychiatry & Neurology Psychiatry
DX: F39 Unspecified mood [affective] disorder (principal); Z68.42 Body mass index [BMI] 45.0-49.9, adult; F32.9 Major depressive disorder, single episode, unspecified; F31.9 Bipolar disorder, unspecified; F17.200 Nicotine dependence, unspecified, uncomplicated; B35.3 Tinea pedis; F79 Unspecified intellectual disabilities; F43.10 Post-traumatic stress disorder, unspecified; F60.3 Borderline personality disorder; J45.909 Unspecified asthma, uncomplicated; K21.9 Gastro-esophageal reflux disease without esophagitis; E66.9 Obesity, unspecified; Z79.899 Other long term (current) drug therapy

== ENCOUNTER 2018-12-30 14:44 | Emergency (ER) | payer BC, MEDICAID, SELFPAY ==
[~2018-12-30] VITALS: Ht 165.1 cm; Wt 150.4 kg
[~2018-12-30 14:44] MED LIST changes: -/LAMO10TA OR; -BENZ2TA GT; +BENZ2TAB33 GT; +FLON1SPR; +KETO2CR TOP; +KONS100P4 PO; +LAMI1TAB7 OR; +LATU20TA PO; -METAPKT PO; +ONDA-227 PO; -OXYB5TA PO; +OXYB5TAB10 PO; -PANT40TA2 PO; +PANT40TA3 PO; +PERC5TAB12 PO; -PERC5TAB6 PO; +PRAZ1CAP PO; -RISP3TAB18 PO; +RISP3TAB20 PO; +TRAZ-252 PO; +TRAZ1TAB10 PO; -TRAZ50TA4 PO; -TRAZO50TA PO; -ULTR50TA PO; +ULTR50TA8 PO; -ZOFR8TAB PO
[2018-12-30 15:46] LABS: BASO % 0.5 % (0.0-1.0); EOS # 0.1 10^3/uL (0.0-0.50); EOS % 1.9 % (0.0-3.0); HEMATOCRIT 39.3 % (36.0-47.0); HEMOGLOBIN 13.3 g/dl (12.0-15.5); LYMPH # 1.6 10^3/uL (1.5-6.5); LYMPH % 26.2 % (24.0-44.0); MEAN CORPUSCULAR HEMOGLOBIN 29.3 pg (27.0-33.0); MEAN CORPUSCULAR HGB CONC 33.8 g/dl (32.0-36.5); MEAN CORPUSCULAR VOLUME 86.6 fl (80.0-96.0); MONO # 0.5 10^3/uL (0.0-0.8); MONO % 8.1 % (0.0-5.0); NEUTROPHILS # 3.9 10^3/uL (1.8-7.7); NEUTROPHILS % 63.1 % (36.0-66.0); PLATELET COUNT, AUTOMATED 270 10^3/uL (150-450); RED BLOOD COUNT 4.54 10^6/uL (4.00-5.40); WHITE BLOOD COUNT 6.2 10^3/uL (4.0-10.0)
[2018-12-30 16:19] LABS: ALBUMIN 3.4 GM/DL (3.2-5.2); ALT/SGPT 33 U/L (12-78); BILIRUBIN,DIRECT < 0.1 MG/DL (0.0-0.2); BILIRUBIN,TOTAL 0.3 MG/DL (0.2-1.0); BLOOD UREA NITROGEN 13 MG/DL (7-18); CALCIUM LEVEL 8.5 MG/DL (8.5-10.1); CARBON DIOXIDE LEVEL 26 MEQ/L (21-32); CHLORIDE LEVEL 106 MEQ/L (98-107); CREATININE FOR GFR 0.67 MG/DL (0.55-1.30); GLOMERULAR FILTRATION RATE > 60.0 (>60); GLUCOSE, FASTING 100 MG/DL (70-100); LIPASE 106 U/L (73-393); POTASSIUM SERUM 3.8 MEQ/L (3.5-5.1); SODIUM LEVEL 139 MEQ/L (136-145); TOTAL PROTEIN 6.9 GM/DL (6.4-8.2)
[2018-12-30 16:58] LABS: HCG, SERUM QUALITATIVE NEGATIVE (NEGATIVE)
[2018-12-30] MEDS ORDERED: METOCLOPRAMIDE 10 MG TAB PO ONE (17:30)
[2018-12-30] MEDS ORDERED: PYRI1TAB5 PO (18:55)
[2018-12-30] MEDS ORDERED: CIPR-249 PO (18:55)
[2018-12-30 19:02] VITALS: BP 125/82
--- NOTE | 2018-12-31 09:16 | REP ---
CT ABDOMEN AND PELVIS WITHOUT CONTRAST: CT abdomen and pelvis is performed without oral or IV contrast. Sagittal and coronal reconstruction images are performed. Visualized lung bases demonstrate no infiltrate. The liver is grossly unremarkable. Spleen is mildly enlarged, approximately 14 cm in length with no gross intrinsic abnormality. The adrenals, pancreas, and kidneys are grossly unremarkable. No renal or ureteral calculus is seen and there is no hydroureteronephrosis. There is no evidence of bladder calculus. The abdominal aorta is normal in caliber. There is no significant adenopathy. Scattered tiny mesenteric lymph nodes are present. There is no free air or free fluid. No bowel wall thickening is seen. There is no evidence of appendicitis. No pelvic mass is seen. IMPRESSION: Mild splenomegaly. No acute abnormality is detected as discussed in detail above. Preliminary report provided by [facility] at the time of the exam. Electronically Signed by Bill Gaming MD 01/01/2019 09:48 A
--- NOTE | 2019-01-02 13:35 | ED PDOC ---
Post-Departure Follow-Up dr dhillon faxed formal report of ct abd/p for fu Slick Kelly MD Jan 02, 2019 13:35
== END 2018-12-30 19:06 | disposition home or self-care (01) ==
LOC: M ED 14:44
DX: N39.0 Urinary tract infection, site not specified (principal); K52.9 Noninfective gastroenteritis and colitis, unspecified; J45.909 Unspecified asthma, uncomplicated; K21.9 Gastro-esophageal reflux disease without esophagitis; R16.1 Splenomegaly, not elsewhere classified; Z88.6 Allergy status to analgesic agent

== ENCOUNTER 2019-03-05 13:50 | Emergency (ER) | payer MEDICAID ==
[~2019-03-05] VITALS: Ht 165.1 cm; Wt 145.9 kg
[~2019-03-05 13:50] MED LIST changes: +CIPR-249 PO; +PYRI1TAB5 PO
[2019-03-05] MEDS ORDERED: VENTAER (13:58)
[2019-03-05] MEDS ORDERED: OMEP40CA2 PO (13:58)
--- NOTE | 2019-03-05 14:50 | REP ---
LEFT SHOULDER: THREE VIEWS. HISTORY: Pain. FINDINGS: Three views of the left shoulder demonstrate normal alignment of the glenohumeral and acromioclavicular joints. Periarticular soft tissues are unremarkable. No erosive changes seen. IMPRESSION: Negative left shoulder radiographs. Electronically Signed by Celestino Middleton MD 03/05/2019 03:28 P
[2019-03-05] MEDS ORDERED: NAPR-837 PO (15:00)
[2019-03-05 15:03] VITALS: BP 139/78
== END 2019-03-05 15:09 | disposition home or self-care (01) ==
LOC: M ED 13:50
DX: M25.512 Pain in left shoulder (principal); K21.9 Gastro-esophageal reflux disease without esophagitis; Z88.6 Allergy status to analgesic agent; Z79.899 Other long term (current) drug therapy

== ENCOUNTER → 2019-03-28 | Outpatient (REF) | payer OTHER ==
[~2019-03-28] MED LIST changes: +NAPR-837 PO; +OMEP40CA97 PO; +VENTAER
== END ==
LOC: M LAB REF 16:56
PROVIDERS: ATTEND Advanced Practice Midwife
DX: R87.612 Low grade squamous intraepithelial lesion on cytologic smear of cervix (LGSIL) (principal)